=== PATIENT | female | born 1950 | race Caucasian/White ===

== ENCOUNTER 2018-07-18 03:36 | Inpatient (IN) | payer MEDICARE ==
[~2018-07-18] VITALS: Ht 149.9 cm; Wt 39.7 kg
[2018-07-18 05:52] VITALS: BP 106/56
[2018-07-18 07:44] VITALS: BP 100/62
[2018-07-18] MEDS ORDERED: LABETALOL 5MG/ML, 20ML IVPush PRN (09:00)
[2018-07-18] MEDS ORDERED: ACETAMINOPHEN 325 MG TABLET PO PRN (09:00)
[2018-07-18] MEDS ORDERED: VANCOMYCIN PER PHARMACY MC PRN (09:00)
[2018-07-18] MEDS ORDERED: HYDROcodone/APAP 5/325 TABLET PO PRN (09:00)
[2018-07-18] MEDS ORDERED: PLEASE ENTER ALLERGIES MC SCH (09:00)
[2018-07-18] MEDS ORDERED: ONDANSETRON 2MG/ML, 2ML IVPush PRN (09:00)
[2018-07-18 09:25] LABS: BASOPHILS % (AUTO) 0 % (0-1); EOSINOPHILS % (AUTO) 0 % (1-7); LYMPHOCYTES # (AUTO) 0.51 x10^3/uL (1-3.4); LYMPHOCYTES % (AUTO) 5 % (22-44); MD NO; MEAN CORPUSCULAR HEMOGLOBIN 29.1 pg (27.0-34.8); MEAN CORPUSCULAR HGB CONC 32.8 g/dL (32.4-35.8); MEAN CORPUSCULAR VOLUME 88.8 fL (80-100); MEAN PLATELET VOLUME 7.9 fL (7.4-10.4); MONOCYTES # (AUTO) 0.35 x10^3/uL (0.2-0.8); MONOCYTES % (AUTO) 4 % (2-9); NEUTROPHILS # (AUTO) 8.63 x10^3/uL (1.8-6.8); NEUTROPHILS % (AUTO) 91 % (42-75); PLATELET COUNT 202 x10^3/uL (130-400); RED BLOOD COUNT 4.67 x10^6/uL (3.82-5.3); RED CELL DISTRIBUTION WIDTH 14.7 % (9.6-15.2)
[2018-07-18 09:47] LABS: TROPONIN I 0.465 ng/mL (0.000-0.045)
[2018-07-18] MEDS ORDERED: PHARMACOKINETIC MONITORING MC PRN (10:30)
[2018-07-18] MEDS ORDERED: PHARMACOKINETIC CONSULTATION MC ONE (10:30)
[2018-07-18] MEDS: OSELTAMIVIR 75 MG CAPSULE PO SCH ×2 (10:31→22:22)
[2018-07-18] MEDS: PIPERACILLIN/TAZO/PMX 4.5GM 100 ML IV SCH ×3 (10:31→22:22)
[2018-07-18] MEDS: SODIUM CHLORIDE 0.9% 1,000 ML IV SCH ×2 (10:32→22:21)
[2018-07-18] MEDS: HEPARIN 5,000 UNITS/ML, 1ML SQ SCH ×2 (10:32→16:25)
[2018-07-18] MEDS: GUAIFENESIN 200 MG TABLET PO SCH ×3 (10:32→22:22)
[2018-07-18] MEDS ORDERED: VANCOMYCIN 800 MG in SODIUM CHLORIDE 0.9% 100 ML IV SCH (11:00)
[2018-07-18] MEDS: ALBUTEROL/IPRATROPIUM 2.5MG/0.5MG, 3 ML NPPB SCH ×4 (11:00→22:28)
[2018-07-18 11:02] LABS: CREATININE 0.33 mg/dL (0.55-1.02)
[2018-07-18 14:59] LABS: ALANINE AMINOTRANSFERASE 16 U/L (12-78); ALBUMIN 2.4 g/dL (3.4-5.0); ANION GAP 5 mmol/L (5-15); CHLORIDE 105 mmol/L (98-107); CREATININE 0.44 mg/dL (0.55-1.02)
[2018-07-18 15:03] LABS: ALKALINE PHOSPHATASE 68 U/L (45-117); BILIRUBIN,TOTAL 0.5 mg/dL (0.2-1.0); TOTAL PROTEIN 6.1 g/dL (6.4-8.2); TROPONIN I 0.348 ng/mL (0.000-0.045)
[2018-07-18 15:27] VITALS: BP 111/62
[2018-07-18 15:34] LABS: INTERNATIONAL NORMALIZED RATIO 1.14 (0.93-1.1); PROTHROMBIN TIME 11.9 Seconds (9.6-11.5)
[2018-07-18] MEDS: OXYcodone IR 30 MG TABLET PO PRN ×2 (16:25→22:22)
[2018-07-18 18:26] VITALS: BP 106/56
[2018-07-18 19:23] LABS: TROPONIN I 0.282 ng/mL (0.000-0.045)
[2018-07-18] MEDS: ATORVASTATIN 80 MG TABLET PO SCH (22:22)
[2018-07-19 00:32] VITALS: BP 101/55
[2018-07-19] MEDS ORDERED: ZOLPIDEM 5MG TABLET PO ONE (01:30)
[2018-07-19] MEDS: HEPARIN 5,000 UNITS/ML, 1ML SQ SCH ×3 (02:02→17:14)
[2018-07-19 05:13] LABS: BASOPHILS # (AUTO) 0.02 x10^3/uL (0-0.1); BASOPHILS % (AUTO) 0 % (0-1); EOSINOPHILS % (AUTO) 0 % (1-7); LYMPHOCYTES # (AUTO) 0.97 x10^3/uL (1-3.4); LYMPHOCYTES % (AUTO) 10 % (22-44); MD NO; MEAN CORPUSCULAR HEMOGLOBIN 29.7 pg (27.0-34.8); MEAN CORPUSCULAR HGB CONC 32.9 g/dL (32.4-35.8); MEAN CORPUSCULAR VOLUME 90.4 fL (80-100); MEAN PLATELET VOLUME 7.9 fL (7.4-10.4); MONOCYTES # (AUTO) 0.58 x10^3/uL (0.2-0.8); MONOCYTES % (AUTO) 6 % (2-9); NEUTROPHILS # (AUTO) 8.24 x10^3/uL (1.8-6.8); NEUTROPHILS % (AUTO) 84 % (42-75); PLATELET COUNT 206 x10^3/uL (130-400); RED BLOOD COUNT 4.19 x10^6/uL (3.82-5.3); RED CELL DISTRIBUTION WIDTH 14.4 % (9.6-15.2)
[2018-07-19] MEDS: PIPERACILLIN/TAZO/PMX 4.5GM 100 ML IV SCH ×2 (05:13→09:16)
[2018-07-19] MEDS: GUAIFENESIN 200 MG TABLET PO SCH ×4 (05:13→21:02)
[2018-07-19] MEDS: OXYcodone IR 30 MG TABLET PO PRN ×3 (05:14→17:13)
[2018-07-19 05:26] LABS: ALBUMIN 2.2 g/dL (3.4-5.0); ANION GAP 5 mmol/L (5-15); CALCIUM 7.6 mg/dL (8.5-10.1); CHLORIDE 107 mmol/L (98-107)
[2018-07-19 05:33] LABS: ALANINE AMINOTRANSFERASE 13 U/L (12-78); ALKALINE PHOSPHATASE 54 U/L (45-117); BILIRUBIN,TOTAL 0.4 mg/dL (0.2-1.0); CREATININE 0.34 mg/dL (0.55-1.02); TOTAL PROTEIN 5.4 g/dL (6.4-8.2)
[2018-07-19] MEDS: ALBUTEROL/IPRATROPIUM 2.5MG/0.5MG, 3 ML NPPB SCH ×4 (06:00→20:24)
[2018-07-19] MEDS ORDERED: OXYC30TA PO (06:00)
[2018-07-19 07:51] VITALS: BP 96/56
[2018-07-19] MEDS: OSELTAMIVIR 75 MG CAPSULE PO SCH ×2 (09:17→21:02)
[2018-07-19] MEDS: CEFTRIAXONE PMX 1GM/50ML 50 ML IV SCH (11:53)
[2018-07-19 12:17] VITALS: BP 106/49
[2018-07-19] MEDS: DOXYCYCLINE 100 MG in DEXTROSE 5% 250 ML IV SCH (12:34)
[2018-07-19] MEDS: SODIUM CHLORIDE 0.9% 1,000 ML IV SCH (15:00)
[2018-07-19 20:33] VITALS: BP 124/54
[2018-07-19] MEDS: ZOLPIDEM 10MG TABLET PO PRN (21:02)
[2018-07-19] MEDS: ATORVASTATIN 80 MG TABLET PO SCH (21:02)
[2018-07-20] MEDS: HEPARIN 5,000 UNITS/ML, 1ML SQ SCH ×3 (00:36→17:15)
[2018-07-20] MEDS: OXYcodone IR 30 MG TABLET PO PRN ×4 (00:36→21:07)
[2018-07-20] MEDS: DOXYCYCLINE 100 MG in DEXTROSE 5% 250 ML IV SCH ×2 (00:36→12:42)
[2018-07-20 00:42] VITALS: BP 145/91
[2018-07-20] MEDS: GUAIFENESIN 200 MG TABLET PO SCH ×4 (05:01→21:01)
[2018-07-20 06:13] LABS: ALANINE AMINOTRANSFERASE 15 U/L (12-78); ALBUMIN 2.2 g/dL (3.4-5.0); ANION GAP 2 mmol/L (5-15); CALCIUM 7.8 mg/dL (8.5-10.1); CHLORIDE 107 mmol/L (98-107); CREATININE 0.35 mg/dL (0.55-1.02)
[2018-07-20 06:14] LABS: BASOPHILS # (AUTO) 0.03 x10^3/uL (0-0.1); BASOPHILS % (AUTO) 0 % (0-1); EOSINOPHILS % (AUTO) 0 % (1-7); LYMPHOCYTES # (AUTO) 1.53 x10^3/uL (1-3.4); LYMPHOCYTES % (AUTO) 15 % (22-44); MD NO; MEAN CORPUSCULAR HEMOGLOBIN 29.7 pg (27.0-34.8); MEAN CORPUSCULAR HGB CONC 33.5 g/dL (32.4-35.8); MEAN CORPUSCULAR VOLUME 88.7 fL (80-100); MEAN PLATELET VOLUME 7.5 fL (7.4-10.4); MONOCYTES % (AUTO) 7 % (2-9); NEUTROPHILS # (AUTO) 8.18 x10^3/uL (1.8-6.8); NEUTROPHILS % (AUTO) 78 % (42-75); PLATELET COUNT 267 x10^3/uL (130-400); RED BLOOD COUNT 4.33 x10^6/uL (3.82-5.3); RED CELL DISTRIBUTION WIDTH 14.6 % (9.6-15.2)
[2018-07-20 06:15] LABS: ALKALINE PHOSPHATASE 63 U/L (45-117); BILIRUBIN,TOTAL 0.4 mg/dL (0.2-1.0); TOTAL PROTEIN 5.7 g/dL (6.4-8.2)
[2018-07-20 07:32] VITALS: BP 150/82
[2018-07-20] MEDS: ALBUTEROL/IPRATROPIUM 2.5MG/0.5MG, 3 ML NPPB SCH ×4 (07:50→20:00)
[2018-07-20] MEDS: OSELTAMIVIR 75 MG CAPSULE PO SCH ×2 (09:14→21:01)
[2018-07-20] MEDS: POTASSIUM CHLORIDE 20 MEQ TAB.ER.PRT PO SCH ×2 (09:15→17:16)
[2018-07-20] MEDS ORDERED: LACTULOSE 20 GM/30 ML UDC PO PRN (10:30)
[2018-07-20] MEDS: MAGNESIUM HYDROXIDE 8%, 30ML UDC PO SCH (11:03)
[2018-07-20] MEDS: DOCUSATE 100 MG CAPSULE PO SCH ×2 (11:03→21:01)
[2018-07-20] MEDS: CEFTRIAXONE PMX 1GM/50ML 50 ML IV SCH (11:03)
[2018-07-20 14:08] VITALS: BP 147/77
[2018-07-20 18:42] VITALS: BP 135/82
[2018-07-20] MEDS: ATORVASTATIN 80 MG TABLET PO SCH (21:01)
[2018-07-20] MEDS: ZOLPIDEM 10MG TABLET PO PRN (21:07)
[2018-07-21] MEDS: SODIUM CHLORIDE 0.9% 1,000 ML IV SCH (00:09)
[2018-07-21] MEDS: DOXYCYCLINE 100 MG in DEXTROSE 5% 250 ML IV SCH (00:09)
[2018-07-21 00:26] VITALS: BP 122/79
[2018-07-21] MEDS: HEPARIN 5,000 UNITS/ML, 1ML SQ SCH (00:29)
[2018-07-21] MEDS: OXYcodone IR 30 MG TABLET PO PRN ×4 (02:50→21:36)
[2018-07-21 05:08] LABS: BASOPHILS # (AUTO) 0.02 x10^3/uL (0-0.1); BASOPHILS % (AUTO) 0 % (0-1); EOSINOPHILS # (AUTO) 0.02 x10^3/uL (0-0.4); EOSINOPHILS % (AUTO) 0 % (1-7); LYMPHOCYTES # (AUTO) 1.74 x10^3/uL (1-3.4); LYMPHOCYTES % (AUTO) 22 % (22-44); MD NO; MEAN CORPUSCULAR HEMOGLOBIN 29.7 pg (27.0-34.8); MEAN CORPUSCULAR HGB CONC 33.5 g/dL (32.4-35.8); MEAN CORPUSCULAR VOLUME 88.7 fL (80-100); MEAN PLATELET VOLUME 7.3 fL (7.4-10.4); MONOCYTES # (AUTO) 0.64 x10^3/uL (0.2-0.8); MONOCYTES % (AUTO) 8 % (2-9); NEUTROPHILS # (AUTO) 5.65 x10^3/uL (1.8-6.8); NEUTROPHILS % (AUTO) 70 % (42-75); PLATELET COUNT 313 x10^3/uL (130-400); RED BLOOD COUNT 4.59 x10^6/uL (3.82-5.3); RED CELL DISTRIBUTION WIDTH 14.2 % (9.6-15.2)
[2018-07-21 05:14] LABS: ALBUMIN 2.4 g/dL (3.4-5.0); ANION GAP 4 mmol/L (5-15); CALCIUM 8.2 mg/dL (8.5-10.1); CHLORIDE 103 mmol/L (98-107)
[2018-07-21 05:18] LABS: ALANINE AMINOTRANSFERASE 17 U/L (12-78); ALKALINE PHOSPHATASE 62 U/L (45-117); BILIRUBIN,TOTAL 0.6 mg/dL (0.2-1.0); CREATININE 0.41 mg/dL (0.55-1.02); TOTAL PROTEIN 6.4 g/dL (6.4-8.2)
[2018-07-21] MEDS: GUAIFENESIN 200 MG TABLET PO SCH ×4 (06:00→21:36)
[2018-07-21 06:57] VITALS: BP 133/80
[2018-07-21] MEDS: ALBUTEROL/IPRATROPIUM 2.5MG/0.5MG, 3 ML NPPB SCH ×2 (07:50→19:43)
[2018-07-21] MEDS: OSELTAMIVIR 75 MG CAPSULE PO SCH ×2 (09:36→21:36)
[2018-07-21] MEDS: POTASSIUM CHLORIDE 20 MEQ TAB.ER.PRT PO SCH ×2 (09:37→16:27)
[2018-07-21] MEDS: ENOXAPARIN 40 MG/0.4 ML SQ SCH (09:37)
[2018-07-21] MEDS: DOXYCYCLINE 100MG TABLET PO SCH ×2 (09:37→21:36)
[2018-07-21] MEDS: AMOXICILLIN/CLAV 875-125MG TABLET PO SCH ×2 (09:37→21:36)
[2018-07-21] MEDS: DOCUSATE 100 MG CAPSULE PO SCH ×2 (09:37→21:36)
[2018-07-21] MEDS: MAGNESIUM HYDROXIDE 8%, 30ML UDC PO SCH (09:37)
[2018-07-21 12:22] VITALS: BP 135/80
[2018-07-21 19:57] VITALS: BP 156/90
[2018-07-21] MEDS: ATORVASTATIN 80 MG TABLET PO SCH (21:36)
[2018-07-21] MEDS: ZOLPIDEM 10MG TABLET PO PRN (22:10)
[2018-07-22 00:52] VITALS: BP 135/89
[2018-07-22] MEDS: OXYcodone IR 30 MG TABLET PO PRN ×3 (03:37→13:25)
[2018-07-22] MEDS: GUAIFENESIN 200 MG TABLET PO SCH ×3 (05:41→16:00)
[2018-07-22 07:34] VITALS: BP 119/74
[2018-07-22] MEDS: ENOXAPARIN 40 MG/0.4 ML SQ SCH (09:00)
[2018-07-22] MEDS: ALBUTEROL/IPRATROPIUM 2.5MG/0.5MG, 3 ML NPPB SCH (09:00)
[2018-07-22] MEDS: MAGNESIUM HYDROXIDE 8%, 30ML UDC PO SCH (09:00)
[2018-07-22] MEDS: DOCUSATE 100 MG CAPSULE PO SCH (09:00)
[2018-07-22] MEDS ORDERED: POTASSIUM CHLORIDE 20 MEQ TAB.ER.PRT PO SCH (09:00)
[2018-07-22] MEDS: AMOXICILLIN/CLAV 875-125MG TABLET PO SCH (09:48)
[2018-07-22] MEDS: OSELTAMIVIR 75 MG CAPSULE PO SCH (09:48)
[2018-07-22] MEDS: DOXYCYCLINE 100MG TABLET PO SCH (09:48)
[2018-07-22] MEDS ORDERED: GUAI200T3 PO (10:01)
[2018-07-22] MEDS ORDERED: TIOT18CA INH (10:01)
[2018-07-22] MEDS ORDERED: DOXY100T PO (10:01)
[2018-07-22] MEDS ORDERED: PRED20TA PO (10:01)
[2018-07-22] MEDS ORDERED: AMOX1TAB12 PO (10:01)
[2018-07-22] MEDS ORDERED: OSEL75CA PO (10:01)
[2018-07-22] MEDS ORDERED: POTA20TA6 PO (10:01)
[2018-07-22] MEDS ORDERED: BUDE10.22 INH (10:01)
[2018-07-22 11:31] LABS: CLOSTRIDIUM DIFFICILE ANTIGEN NEGATIVE; CLOSTRIDIUM DIFFICILE TOXIN NEGATIVE (Negative)
[2018-07-22 12:00] VITALS: BP 116/68
== END 2018-07-22 17:38 | disposition home health service (06) | DRG 193 ==
LOC: 3NE 05:56
PROVIDERS: ADMIT Family Medicine; ATTEND Family Medicine
DX: J11.00 Influenza due to unidentified influenza virus with unspecified type of pneumonia (principal); J96.01 Acute respiratory failure with hypoxia; E43 Unspecified severe protein-calorie malnutrition; F11.20 Opioid dependence, uncomplicated; J44.1 Chronic obstructive pulmonary disease with (acute) exacerbation; J44.0 Chronic obstructive pulmonary disease with (acute) lower respiratory infection; Z68.1 Body mass index [BMI] 19.9 or less, adult; T38.0X5A Adverse effect of glucocorticoids and synthetic analogues, initial encounter; Z66 Do not resuscitate; K59.00 Constipation, unspecified; G89.29 Other chronic pain; G47.00 Insomnia, unspecified; Z88.6 Allergy status to analgesic agent; Z87.891 Personal history of nicotine dependence; Z90.710 Acquired absence of both cervix and uterus; Z90.89 Acquired absence of other organs; Z79.899 Other long term (current) drug therapy; Z88.8 Allergy status to other drugs, medicaments and biological substances
CPT/HCPCS: 36415; 36600; 80053; 82565; 82803; 83880; 84484; 84520; 85025; 85610; 85730; 87040; 87324; 93306; 94640; G0378; J0696; J1644; J1650; J2405; J2543; J3370; J7060; J7620; J7030; J7512